=== PATIENT | male | born 1950 | race Hispanic/Latino ===

== ENCOUNTER → 2018-08-31 | Outpatient (CLI) | payer MEDICARE, OTHER ==
[~2018-08-31] MED LIST: IOPAMIDOL 370 MG/ML 200 ML INFUS..BTL INJ ONE; SODIUM CHLORIDE 0.9% 100 ML 100 ML ONE
[2018-08-31 14:58] LABS: BLOOD UREA NITROGEN 23 mg/dL (7-26); BUN/CREATININE RATIO 24 (6-25); CREATININE, SERUM 0.94 mg/dL (0.72-1.25); EST GLOMERULAR FILTRATION RATE > 60 ML/MIN (60-)
--- NOTE | 2018-08-31 16:49 | Diagnostic Imaging Report ---
CTA NECK HISTORY: Carotid stenosis COMPARISON: None. TECHNIQUE: CTA of the neck was performed with intravenous iodine based contrast. Coronal, sagittal, oblique, and 3-D reformations were created. One or more of the following dose reduction techniques were used: Automated exposure control, adjustment of the mA and/or kV according to patient size, and/or utilization of iterative reconstruction technique. 100 mL of Isovue-370 were administered. DISCUSSION: If present, any cervical carotid stenosis will be measured as a percentage relative to the [place] artery distal to the stenosis. CERVICAL CTA: There are mild calcifications in the aortic arch and proximal great vessels. Right Carotid: Mild to moderate calcified plaque at the right carotid bulb does not cause significant stenosis (less than 50%). The right distal common carotid artery, carotid bulb, and internal carotid artery have a retropharyngeal course. Left Carotid: Mild to moderate noncalcified plaque at the left carotid bulb does not cause significant stenosis (less than 50%). The left distal common carotid artery, carotid bulb, and external carotid artery have a retropharyngeal course. Right vertebral artery: Calcification at the ostium of the right vertebral artery causes mild to moderate focal stenosis. Left vertebral artery: Calcification at the ostium of the left vertebral artery causes mild to moderate focal stenosis. A few mild calcifications in the left V1 and V2 segments do not cause significant stenosis. The intracranial arterial vasculature is partially visualized. Mild bilateral intradural vertebral artery calcifications are present without significant stenosis. Bilateral carotid siphon calcifications are present. Additional findings: Cerebral volume loss is partially visualized. Both ocular lenses are thinned. There are mild to moderate degenerative changes throughout the spine. Multilevel prominent osteophytes throughout the spine with relatively preserved disc spaces suggest diffuse idiopathic skeletal hyperostosis. Multiple teeth are missing. There is periapical lucency at the right mandibular incisor. IMPRESSION: 1. Mild to moderate bilateral carotid bulb plaque without significant stenosis (less than 50% focal stenosis). 2. Mild to moderate focal stenoses at the bilateral vertebral artery ostia (due to calcified plaque). 3. Minimal cervical left vertebral artery calcification without significant stenosis. Signed by: Dr. Brian Pennington M.D. on 08/31/2018 4:46 PM
== END ==
LOC: CT 13:23
DX: G45.1 Carotid artery syndrome (hemispheric) (principal)
CPT/HCPCS: 36415; 70498; 82565; 84520; Q9967